=== PATIENT | male | born 1960 | race Caucasian/White ===

== ENCOUNTER 2018-08-03 13:31 | Emergency (ER) | payer SELFPAY ==
[2018-08-03 14:55] VITALS: BP 117/45
--- NOTE | 2018-08-03 15:16 | UC ---
Lower Extremity/Ankle HPI - HPI Summary HPI Summary: Pt was playing basketball when he stepped on some loose gravel and "did a split " pulling his right hamstring muscle. He has been taking a muscle relaxant and alternating with Motrin 800 mg . Pt is visiting from [place] and "just needs a little more pain control" than what I'm taking. - History of Current Complaint Chief Complaint: UCLowerExtremity Stated Complaint: RIGHT LEG INJURY Time Seen by Provider: 08/03/18 14:57 Hx Obtained From: Patient Onset/Duration: Sudden Onset Severity Initially: Moderate Severity Currently: Moderate Pain Intensity: 8 Aggravating Factor(s): Ambulation Alleviating Factor(s): Nothing Able to Bear Weight: Yes - but reluctantly - Allergies/Home Medications Allergies/Adverse Reactions: Allergies Allergy/AdvReac Type Severity Reaction Status Date / Time No Known Allergies Allergy Verified 08/03/18 14:49 Home Medications: Home Medications Ibuprofen TAB* [Motrin TAB* 800 MG] 800 mg PO Q6H PRN 08/03/18 [History Confirmed 08/03/18] Methocarbamol TAB* [Robaxin 500 MG TAB*] 750 mg PO TID PRN 08/03/18 [History Confirmed 08/03/18] PMH/Surg Hx/FS Hx/Imm Hx Previously Healthy: Yes - Surgical History Surgical History: Yes Surgery Procedure, Year, and Place: appy - Family History Known Family History: Positive: Non-Contributory - Social History Alcohol Use: Occasionally Substance Use Type: None Smoking Status (MU): Never Smoked Tobacco Review of Systems All Other Systems Reviewed And Are Negative: Yes Skin: Negative: Bruising Motor: Positive: Negative Neurovascular: Positive: Negative Musculoskeletal: Positive: Other: - Pain hamstring and down to calf right leg Is Patient Immunocompromised?: No Physical Exam Triage Information Reviewed: Yes Appearance: Well-Appearing, Well-Nourished, Pain Distress - Moves slowly due to strain of right hamstring Vital Signs: Initial Vital Signs Temp 97.2 F 08/03/18 14:51 Pulse 68 08/03/18 14:51 Resp 18 08/03/18 14:51 BP 117/45 08/03/18 14:51 Pulse Ox 98 08/03/18 14:51 Vital Signs Reviewed: Yes Musculoskeletal: Positive: Strength Intact, Other: - able to lift his upper and lower leg, hamstring and right leg muscles are tight but pt has well-developed thigh and leg muscles. No bruising, erythema, swelling or deformity. Ligaments intact. Hafsa's intact. Difficult to put weight on leg due to pain but does reluctantly. Neurological Exam: Normal Psychological Exam: Normal Skin Exam: Normal Lower Extremity Course/Dx - Course Course Of Treatment: Pt is still uncomfortable but can use crutches. He does not want a follow up with Ortho here since he will be heading back home in a few days. He refuses a Toradol injection here. - Differential Dx/Diagnosis Provider Diagnosis: Hamstring muscle strain Discharge - Sign-Out/Discharge Documenting (check all that apply): Patient Departure All imaging exams completed and their final reports reviewed: No Studies - Discharge Plan Condition: Fair Disposition: HOME Prescriptions: oxyCODONE/Acetamin 5/325 MG* [Percocet 5/325 TAB*] 1 tab PO Q4H PRN #10 tab MDD 6 PRN Reason: Pain Patient Education Materials: Hamstring Injury (ED), Hamstring Exercises (ED) Referrals: No Primary Care Phys,NOPCP [Primary Care Provider] - [facility] [Outside] Additional Instructions: Rest, heat to sore area, may take Motrin every 8 hours with food for pain. Ambulate as pain permits. Follow up with your primary care doctor in 2-3 days if no improvement. - Billing Disposition and Condition Condition: FAIR Disposition: Home
== END 2018-08-03 15:22 | disposition home or self-care (01) ==
LOC: UCCORT 13:31
DX: S76.811A Strain of other specified muscles, fascia and tendons at thigh level, right thigh, initial encounter (principal); X50.0XXA Overexertion from strenuous movement or load, initial encounter; Y93.67 Activity, basketball; Y92.9 Unspecified place or not applicable
CPT/HCPCS: 99202; G0463